=== PATIENT | male | born 1970 | race Caucasian/White ===

== ENCOUNTER 2017-01-15 04:53 | Emergency (ER) | payer OTHER ==
--- NOTE | ~2017-01-15 | CT71 ---
[facility] A Service of [facility] & [facility] RADIOLOGY TEXT RESULTS PATIENT: HAILEE CASTANEDA LOCATION: [facility] : [birth year] UNIT #: [id number] AGE: [address]: Ethan Ace MD SEX: M ORDER DR: [id number] [facility] [address] [place], [place] [address] [id number] MR#: [id number] Acc #: [id number] NAME: HAILEE CASTANEDA : 1970 SEX: M STUDY DATE/TIME: 01/15/2017 6:13 UNIT: [facility] ROOM: STUDY DESCRIPTION: CT Head Wo Contrast Attending Physician: Ethan Ace M.D. Ordering Physician: Meli Howard M.D. Primary Care Physician: Primary Care Physician No MEDICAL IMAGING REPORT This report is preliminary unless electronic signature is present EXAM CT head without contrast, 01/15/2017 HISTORY 46-year-old male with headache after hitting right forehead on table today. COMPARISON CT brain, 04/24/2009 TECHNIQUE Routine unenhanced axial images performed through the brain. This CT exam was performed with one or more of the following radiation dose reduction techniques: automatic exposure control, adjustment of mA and/or kV according to patient size, and iterative reconstruction. FINDINGS No hemorrhage, acute infarction, or abnormal extraaxial fluid collection. There is again noted fullness in the region of the pineal gland and posterior septum pellucidum with punctate calcifications. This is similar in appearance to the prior study from 2008 and measures up to 1.4 cm in size. Further characterization with contrast enhanced brain MRI is again recommended if this is not already been performed since the prior study. No midline shift or focal mass effect. Ventricular system is normal in size and configuration. Mild right frontal scalp soft tissue swelling. No acute bony abnormality. Visualized paranasal sinuses and mastoid air cells are clear. IMPRESSION 1. No acute intracranial abnormality. 2. Again noted is fullness and punctate calcification in the region of the pineal gland/posterior septum pellucidum. This is similar in appearance to the prior CT brain from 2008 and measures up to 1.4 cm [facility] A Service of [facility] & [facility] RADIOLOGY TEXT RESULTS PATIENT: HAILEE CASTANEDA LOCATION: [facility] : 69 UNIT #: [id number] AGE: [address]: Ethan Ace MD SEX: M ORDER DR: in size. Further characterization with a non-emergent contrast-enhanced brain MRI is again recommended if this has not been performed since the prior study. 3. Mild right frontal scalp soft tissue swelling. No acute bony abnormality. Dictated by... Enrique Sanders M.D. THIS IS AN ELECTRONICALLY VERIFIED REPORT Enrique Sanders M.D. at 01/15/2017 3:24 PM PIERCE/jatin TD: 01/15/2017 08:19 JOB #: [id number] MEDICAL IMAGING REPORT Page 1 of 1 COPY
--- NOTE | ~2017-01-15 | MR17 ---
[facility] A Service of [facility] & [facility] RADIOLOGY TEXT RESULTS PATIENT: HAILEE CASTANEDA LOCATION: [facility] : 68 UNIT #: [id number] AGE: [address]: Ethan Ace MD SEX: M ORDER DR: [id number] [facility] [address] [place], [place] [address] [id number] E MR#: [id number] Acc #: [id number] NAME: HAILEE CASTANEDA : 1970 SEX: M STUDY DATE/TIME: 01/15/2017 9:25 UNIT: [facility] ROOM: STUDY DESCRIPTION: MR Brain WWo Contrast Attending Physician: Ethan Ace M.D. Ordering Physician: Ethan Ace M.D. Primary Care Physician: No Primary Care Physician MRI CENTER REPORT This report is preliminary unless electronic signature is present. EXAM MRI of the brain with and without HISTORY Headache. Patient hit right forehead on a table before 6:00 a.m. today. Patient has a history of dizziness and low blood sugar with syncopal episode for 30 minutes at home today. The patient also indicates previous syncopal episodes in the past 10 years. No cancer history. COMMENT MRI of the brain was performed prior to and following intravenous administration of 20 mL of MultiHance on a 1.5T system. COMPARISON Head CT comparison is from earlier today. 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 It appears to be simple on the MRI. It does not result in significant mass effect. No further imaging evaluation is needed of this finding. No Chiari-1 malformation. There is no evidence for a recent ischemic insult on the diffusion series. There is no extra-axial fluid collection. The patient has a small hematoma right frontal scalp area consistent with recent trauma history. There is nothing to suggest intracranial hemorrhage on the MRI. No intracranial mass effect or extraaxial fluid collection. The major intracranial flow voids are maintained. There is a chronic lacune in the left cerebellar hemisphere peripherally. Please correlate for risk factors for small vessel disease. Alternatively, this could be due to tiny peripheral thromboembolus. The major intracranial flow voids are maintained. Mucous retention cyst or polyp in the left maxillary sinus and some mild volume loss and mucosal disease right maxillary sinus but no sinus air-fluid level. The mastoid air cells are clear. The carmichael-white junction is relatively well-maintained. Postcontrast imaging shows no STS. [facility] A Service of [facility] RADIOLOGY TEXT RESULTS PATIENT: HAILEE CASTANEDA LOCATION: [facility] : 68 UNIT #: [id number] AGE: [address]: Ethan Ace MD SEX: M ORDER DR: additional possible intracranial mass lesion. No pathologic intracranial enhancement. No evidence for vestibular Schwannoma. IMPRESSION 1. 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 This is an incidental finding and no further imaging evaluation of this finding is indicated. 2. No evidence for a recent ischemic insult on the diffusion series. No extraaxial fluid collection or MRI evidence for intracranial hemorrhage. 3. There is a small chronic insult at the periphery of the left cerebellar hemisphere. This small lacunar insult could be due to prior small vessel insult or possibly a tiny thromboembolus and please evaluate further clinically. 4. Mild paranasal sinus disease but no sinus air-fluid level. 5. There is soft tissue hematoma right forehead area consistent with provided history. Dictated by... Lizzette Hernandez M.D. THIS IS AN ELECTRONICALLY VERIFIED REPORT Lizzette Hernandez M.D. at 01/15/2017 2:31 PM AMOL/laura TD: 01/15/2017 13:00 JOB #: [id number] MRI CENTER REPORT Page 1 of 1 COPY
[~2017-01-15 04:53] MED LIST: HUMULIN 70100 UNITS/; HYDROCODON-ACE1 EAC9; INSULIN 70/30; LORTAB 10-5001 EACH PO; LORTAB 5/500 TA1 TA1 PO; NOVOLIN 70/30 V10 ML INJ; NOVOLIN 70100 UNITS/ SUBQ; PHENERGAN25 M1 PO; TAMIFLU75 M1 PO; TESSALON200 MG PO
[2017-01-15 05:31] LABS: BASOPHIL% 0.5 % (0-2.5); EOSINOPHIL% 0.6 % (0.0-7.0); HEMATOCRIT 44.6 % (38.0-50.0); HEMOGLOBIN 14.6 gm/dL (13.0-16.0); MEAN CELL VOLUME 92.5 FL (83-96); MEAN CORPUSCULAR HEMOGLOBIN 30.2 PG (28-34); MEAN CORPUSCULAR HGB CONC 32.7 g/dL (30-36); MEAN PLATELET VOLUME 7.8 FL (6.5-11.5); MONOCYTE# 0.3 X10e3 (0-1.0); MONOCYTE% 4.3 % (3.0-12.0); NEUTROPHIL# 6.6 X10e3 (1.5-7.1); NEUTROPHIL% 81.6 % (40-75); PLATELET COUNT 282 X10e3 (140-420); RED BLOOD COUNT 4.82 X10e (3.90-5.60); RED CELL DISTRIBUTION WIDTH 13.7 % (11.0-15.5)
[2017-01-15 05:46] LABS: DIFF IND NO
[2017-01-15 06:11] LABS: ALBUMIN SERUM 4.2 g/dL (3.5-5.0); BILIRUBIN, DIRECT 0.1 mg/dL (0.0-0.2); BILIRUBIN,INDIRECT 0.9 mg/dL (0.0-0.9); BUN/CREATININE RATIO 13.33; CALCIUM SERUM 8.8 mg/dL (8.4-10.2); CREATININE SERUM 0.9 mg/dL (0.6-1.4); GLOM FILT RATE Estimated 101.4 mL/min (>60)
[2017-01-15 06:13] LABS: URINE SOURCE CLEAN CATCH
[2017-01-15 06:16] LABS: POTASSIUM 2.6 mmol/L (3.5-5.1)
[2017-01-15 06:21] LABS: URINE APPEARANCE CLEAR; URINE BILIRUBIN NEG (NEG); URINE BLOOD NEG (NEG); URINE COLOR YELLOW; URINE GLUCOSE >1000 MG/DL (NEG); URINE KETONE NEG (NEG); URINE LEUKOCYTE ESTERASE NEG (NEG); URINE NITRATE NEG (NEG); URINE PROTEIN NEG (NEG); URINE SPECIFIC GRAVITY 1.023 (1.003-1.035)
[2017-01-15 06:28] LABS: CULTURE INDICATED? NO
[2017-01-15 06:32] LABS: AMPHETAMINE POS (NEG); BARBITURATES NEG (NEG); BENZODIAZEPINES NEG (NEG); COCAINE NEG (NEG); MARIJUANA NEG (NEG); OPIATES NEG (NEG); TRICYCLIC ANTIDEPRESSANTS NEG (NEG); U METHADONE NEG (NEG)
== END 2017-01-15 13:16 | disposition home or self-care (01) ==
LOC: CED 04:53
PROVIDERS: Emergency Medicine
DX: E87.5 Hyperkalemia (principal); F15.10 Other stimulant abuse, uncomplicated; E10.9 Type 1 diabetes mellitus without complications; F17.210 Nicotine dependence, cigarettes, uncomplicated; Z79.4 Long term (current) use of insulin
CPT/HCPCS: 70450; 70553; 80048; 80076; 80307; 81003; 82947; 85025; 96365; 96366; 99284; A9577

== ENCOUNTER 2017-01-26 22:44 | Emergency (ER) | payer OTHER ==
[2017-01-27 00:18] LABS: BASOPHIL# 0.1 X10e3 (0-0.3); BASOPHIL% 0.7 % (0-2.5); DIFF IND NO; EOSINOPHIL# 0.1 X10e3 (0-0.7); EOSINOPHIL% 1.1 % (0.0-7.0); HEMATOCRIT 44.3 % (38.0-50.0); HEMOGLOBIN 14.3 gm/dL (13.0-16.0); LYMPHOCYTE# 1.7 X10e3 (1.0-3.5); LYMPHOCYTE% 16.6 % (17.0-45.0); MEAN CELL VOLUME 92.3 FL (83-96); MEAN CORPUSCULAR HEMOGLOBIN 29.8 PG (28-34); MEAN CORPUSCULAR HGB CONC 32.2 g/dL (30-36); MEAN PLATELET VOLUME 7.8 FL (6.5-11.5); MONOCYTE# 0.7 X10e3 (0-1.0); MONOCYTE% 7.4 % (3.0-12.0); NEUTROPHIL# 7.4 X10e3 (1.5-7.1); NEUTROPHIL% 74.2 % (40-75); PLATELET COUNT 350 X10e3 (140-420)
[2017-01-27 00:39] LABS: ALBUMIN SERUM 4.6 g/dL (3.5-5.0); ALKALINE PHOSPHATASE 55 U/L (32-92); ALT (SGPT) 24 U/L (10-40); AST (SGOT) 28 U/L (10-42); BILIRUBIN, DIRECT 0.1 mg/dL (0.0-0.2); BILIRUBIN,INDIRECT 0.7 mg/dL (0.0-0.9); BILIRUBIN,TOTAL 0.8 mg/dL (0.2-2.0); BLOOD UREA NITROGEN 22 mg/dL (9-23); BUN/CREATININE RATIO 24.44; CALCIUM SERUM 9.7 mg/dL (8.4-10.2); CARBON DIOXIDE 25 mmol/L (22-31); CHLORIDE 99 mmol/L (100-111); CREATININE SERUM 0.9 mg/dL (0.6-1.4); GLOM FILT RATE Estimated 101.4 mL/min (>60); GLUCOSE FASTING 183 mg/dL (70-110); POTASSIUM 3.8 mmol/L (3.5-5.1); PROTEIN TOTAL SERUM 7.6 g/dL (6.0-8.3); SALICYLATE <4.0 mg/dL; SODIUM 133 mmol/L (135-145)
[2017-01-27 00:51] LABS: ACETAMINOPHEN <10 ug/mL; ALCOHOL BLOOD <5 mg/dL (0)
[2017-01-27 01:40] LABS: URINE SOURCE CLEAN CATCH
[2017-01-27 01:45] LABS: URINE APPEARANCE CLEAR; URINE BILIRUBIN NEG (NEG); URINE BLOOD NEG (NEG); URINE COLOR YELLOW; URINE GLUCOSE >1000 MG/DL (NEG); URINE KETONE TRACE (NEG); URINE LEUKOCYTE ESTERASE NEG (NEG); URINE NITRATE NEG (NEG); URINE PROTEIN 1+ (NEG); URINE SPECIFIC GRAVITY 1.029 (1.003-1.035)
[2017-01-27 01:48] LABS: CULTURE INDICATED? NO; URBCS1 AUWI 0-2 /[HPF] (0-2); URINE BACTERIA AUWI NEG (NEGATIVE); URINE SQUAMOUS EPITHELIAL CELL NONE SEEN /[HPF]; UWBCS1 AUWI 0-2 (0-5)
[2017-01-27 02:05] LABS: AMPHETAMINE POS (NEG); BARBITURATES NEG (NEG); BENZODIAZEPINES NEG (NEG); COCAINE POS (NEG); MARIJUANA NEG (NEG); OPIATES POS (NEG); TRICYCLIC ANTIDEPRESSANTS NEG (NEG); U METHADONE NEG (NEG)
== END 2017-01-27 11:00 | disposition other institution (70) ==
LOC: CED 22:44
PROVIDERS: Emergency Medicine
DX: T38.3X2A Poisoning by insulin and oral hypoglycemic [antidiabetic] drugs, intentional self-harm, initial encounter (principal); F32.9 Major depressive disorder, single episode, unspecified; E11.9 Type 2 diabetes mellitus without complications; Z79.899 Other long term (current) drug therapy
CPT/HCPCS: 36415; 80048; 80076; 80307; 81003; 82947; 85025; 96360; 99285; G0480

== ENCOUNTER 2017-01-27 01:00 | Inpatient (IN) | payer OTHER ==
--- NOTE | ~2017-01-27 | PN ---
Unit #: [id number] #: [id number] Patient: HAILEE CASTANEDA [id number] [facility] [address] [place] [address] [id number] I MR#: [id number] NAME: HAILEE CASTANEDA [facility] Age: 46 Sex: M Admission Date: 01/27/2017 : 1970 Attending Physician: Rakan Busch M.D. Admitting Physician: Rakan Busch M.D. Primary Care Physician: Primary Care Physician Alia COOPER NOTES DATE OF SERVICE: 02/02/2017 SUBJECTIVE This patient was seen and assessed on 02/02/2017. Upon today's assessment, the patient reports that he had a low blood sugar this morning and relates that to not eating the snack last night and is asking for diabetic snack to eat at night. Upon speaking with staff, I am told that he receives those anyhow. The patient was informed that he can have peanut butter and Ky crackers in the evening before he goes to bed. The patient reports that overall he is doing well and the plan is to discharge Friday and follow up with [facility]. Dictated by... Kerry Estrada/modl TD: 02/03/2017 23:09 JOB #: [id number] MAUREEN COOPER NOTES Page 1 of 1 X Ana Brantley PROGRESS NOTE
--- NOTE | ~2017-01-27 | PN ---
Unit #: [id number] #: [id number] Patient: HAILEE CASTANEDA [id number] [facility] [address] [place] [address] [id number] I MR#: [id number] NAME: HAILEE CASTANEDA ROOM: 15 Age: 46 Sex: M Admission Date: 01/27/2017 : 1970 Attending Physician: Rakan Busch M.D. Admitting Physician: Rakan Busch M.D. Primary Care Physician: Primary Care Physician No MAUREEN PROGRESS NOTES DATE OF SERVICE 01/31/2017 DISCUSSION Eric is a little bit better and his mood today with a brighter affect. He complains of a mild nonproductive cough. He is alert and fully oriented with no evidence of psychosis and he denies suicidal ideation, intent or plan. ASSESSMENT Bipolar disorder. PLAN Provide Robitussin and continue current treatment plan. Dictated by... Ryan Suarez/elisha TD: 02/09/2017 13:21 JOB #: [id number] [facility] PROGRESS NOTES Page 1 of 1 X Rakan Busch MD X PROGRESS NOTE
--- NOTE | ~2017-01-27 | PA ---
Unit #: [id number] #: [id number] Patient: HAILEE PIERRE [id number] [facility] [address] [place] [address] [id number] I MR#: [id number] NAME: HAILEE PIERRE ROOM: [facility] Age: 46 Sex: M Admission Date: 01/27/2017 : 1970 Date of Assessment: Attending Physician: Rakan Busch M.D. Admitting Physician: Rakan Busch M.D. PSYCHIATRIC ASSESSMENT DATE OF SERVICE 01/28/2017. INFORMANTS Patient, reliable; Sts. Alison and Tricia, reliable; BRITTANEY, reliable. CHIEF COMPLAINT Increasing mood problems and overdose. HISTORY OF PRESENT ILLNESS Hailee Pierre is a 46-year-old man with a history of bipolar disorder and diabetes who took an intentional overdose of 70 units of insulin. He recently lost his job, is from his , and is having increasing stress, dysphoria, hopelessness and felt suicidal with a plan to overdose. He was unable to contract for safety and after he was medically cleared, [facility] PAST PSYCHIATRIC HISTORY Last admission in this facility was in 2013. He has had erratic compliance since that time and does have a history of suicide attempts by overdose and previous hospitalization at the [facility]. FAMILY PSYCHIATRIC HISTORY The patient's father was an alcoholic. SOCIAL HISTORY The patient denied any history of abuse or neglect growing up. He is a high-school graduate, who is with 2 children. PAST MEDICAL HISTORY Type 1 diabetes. MEDICATIONS Please see MAR. ALLERGIES No known medication allergies. SUBSTANCE ABUSE HISTORY The patient smokes, but does not use drugs or alcohol. MENTAL STATUS EXAMINATION The patient presented as a mildly disheveled man, who appeared his stated Unit #: [id number] #: [id number] Patient: HAILEE PIERRE age. He was irritable and somewhat uncooperative with the examination, demanding that the interviewer is "stepped back far enough" to avoid crowding him. His mood was irritable and angry with a congruent affect. He was alert and fully oriented. His memory and concentration were fair. Thought processes appears somewhat racing with mild dysphoria, mild disorganization, and mild circumstantiality. He reported suicidal ideation and could not contract for safety. Insight and judgment, fair. Fund of knowledge and abstraction, fair. ASSETS AND LIABILITIES The patient is youthful and voluntary for treatment. Liabilities include lack of current treatment plan and recent occupational problems. ADMITTING DIAGNOSES AXIS I: Bipolar, mixed. AXIS II: No diagnosis. AXIS III: Diabetes mellitus, insulin-dependent. AXIS IV: AXIS V: PSYCHIATRIC PLAN The patient was admitted and placed on suicide precautions. We will restart insulin as per our medical consultants and obtain baseline laboratory studies. We will restart Depakote 500 mg b.i.d. and titrate upwards to effect. He will enroll in psychotherapy groups, and activities. TREATMENT GOALS Resolution of SI, improvement in insight, and improvement in coping skills. DISCHARGE PLAN Follow up with [facility]. ESTIMATED LENGTH OF STAY 5 days. Dictated by... Rakan Busch M.D. SHAMIR/tiffany TD: 01/29/2017 01:18 JOB #: [id number] PSYCHIATRIC ASSESSMENT Page 1 of 1 X Rakan Busch MD X PSYCHIATRIC ASSESSMENT
--- NOTE | ~2017-01-27 | CO ---
Unit #: [id number] #: [id number] Patient: HAILEE CASTANEDA [id number] [facility] [address] [place] [address] [id number] I MR#: [id number] NAME: HAILEE CASTANEDA ROOM: [facility] Age: 46 Sex: M Admission Date: 01/27/2017 : 1970 Attending Physician: Rakan Busch M.D. Primary Care Physician: Primary Care Physician No CONSULTATION REPORT SUBJECTIVE Yesterday, the patient was seen by Celine Collins, nurse practitioner and restarted on his home medication of Novolin 70/30, but instead of 40 units b.i.d. as he was taking at home, she started him on 30 units b.i.d. Today, his blood sugars were reviewed and at breakfast noted to be 52 and at lunch noted to be 246. The patient is requesting to go back up on his 70/30; however, due to his low blood sugar this morning, I think it is more appropriate to continue NovoLog sliding scale with meals. Dictated by... Kerry Fernandez/tiffany TD: 02/02/2017 17:15 JOB #: [id number] CONSULTATION REPORT Page 1 of 1 X BHARGAVI OCASIO APRN CONSULTATION REPORT
--- NOTE | ~2017-01-27 | CO ---
Unit #: [id number] #: [id number] Patient: MIGUEL CASTANEDA [id number] [place] [address] [id number] I MR#: [id number] NAME: MIGUEL CASTANEDA ROOM: [facility] Age: 46 Sex: M Admission Date: 01/27/2017 : 1970 Attending Physician: Rakan Busch M.D. Primary Care Physician: Primary Care Physician No Consultation Date: 02/01/2017 CONSULTATION REPORT HISTORY OF PRESENT ILLNESS Miguel reports that he is type 2 diabetic; however, he reports being insulin dependent. He was diagnosed 17 years ago and reports taking Novolin 70/30, 40 units in the morning and 40 units at night. He reports that he gets this for free [id number] from [employer]. He does see Dr. Ann at [facility] who manages his diabetes. His last A1c was 7.9. He checks his blood sugars frequently at home and typically there his highest levels are 180. Since being admitted, his blood sugars are frequently greater than 400. He is receiving Levemir and sliding-scale NovoLog. We have increased his Levemir to 18 units; however, he still continues to have elevated blood sugars. He has no other complaints. PHYSICAL EXAMINATION CARDIAC: Regular rate and rhythm. No murmurs, gallops, or rubs. RESPIRATORY: Clear to auscultation bilaterally. ASSESSMENT AND PLAN Type 2 diabetes, insulin dependent. We will discontinue previous insulin orders and begin Novolin 70/30, 30 units q.a.m. and q.h.s. I have discussed with the patient need for decreasing the total amount of insulin that he is given and we will increase as needed to keep blood sugars less than 200 while admitted. The patient was instructed to follow up with primary care provider. Dictated by... Celine Laureano A.P.R.N. for Ryan Gallegos/tiffany TD: 02/01/2017 23:23 JOB #: [id number] Unit #: [id number] #: [id number] Patient: MIGUEL CASTANEDA CONSULTATION REPORT Page 1 of 1 X CELINE MAGAÑA APRN CONSULTATION REPORT
--- NOTE | ~2017-01-27 | PN ---
Unit #: [id number] #: [id number] Patient: HAILEE CASTANEDA [id number] [facility] [address] [place] [address] [id number] I MR#: [id number] NAME: HAILEE CASTANEDA ROOM: [facility] Age: 46 Sex: M Admission Date: 01/27/2017 : 1970 Attending Physician: Rakan Busch M.D. Admitting Physician: Rakan Busch M.D. Primary Care Physician: Primary Care Physician No [facility] PROGRESS NOTES DATE February 01, [address] [facility] DISCUSSION Upon today's assessment, the patient was found sitting in his room, appearing in no apparent discomfort. He reports, at this time, "I'm okay." He denies suicidal or homicidal ideation, denies auditory or visual hallucinations, and no overt symptoms with psychosis noted at this time. He has complaint of his blood sugar and the type of insulin that he received at this facility and says that it is not the type that he has at home, and states that it doesn't regulate his blood sugar as well either. At this time the plan is to continue the detox protocol and current medications. Dictated by... GIL Powers TD: 02/04/2017 10:25 JOB #: [id number] [facility] PROGRESS NOTES Page 1 of 1 X EL SAGE PROGRESS NOTE
--- NOTE | ~2017-01-27 | PN ---
Unit #: [id number] #: [id number] Patient: HAILEE CASTANEDA [id number] [facility] [address] [place] [address] [id number] I MR#: [id number] NAME: HAILEE CASTANEDA ROOM: 15 Age: 46 Sex: M Admission Date: 01/27/2017 : 1970 Attending Physician: Rakan Busch M.D. Admitting Physician: Rakan Busch M.D. Primary Care Physician: Primary Care Physician Alia REDDY PROGRESS NOTES DATE 01/29/2017 DISCUSSION Hailee reports that he is refusing to accept Depakote because "it messes with your liver" and continues to insist that he is on Percocet in the outpatient setting, although he has not been able to provide a pharmacy to confirm this. Our limitations were explained but I did offer the patient alternative treatment in the form of another mood stabilizer and he did accept the idea of treatment with lamotrigine. Mood is irritable with a congruent affect. He is alert and fully oriented with no active psychosis. ASSESSMENT Bipolar, mixed. PLAN Will discontinue Depakote and start lamotrigine 25 mg at bedtime to titrate upwards as appropriate. I will provide Percocet 5/325 every 6 hours p.r.n. in order to treat the patient's shoulder pain. Dictated by... Ryan Suarez/lalit TD: 01/30/2017 17:46 JOB #: [id number] [facility] PROGRESS NOTES Page 1 of 1 X Rakan Busch MD X PROGRESS NOTE
--- NOTE | ~2017-01-27 | HP ---
Unit #: [id number] #: [id number] Patient: HAILEE CASTANEDA [id number] [facility] [address] [place] [address] [id number] MR#: [id number] NAME: HAILEE CASTANEDA ROOM: [facility] Age: 46 Sex: M Admission Date: 01/27/2017 : 1970 Attending Physician: Rakan Busch M.D. Admitting Physician: Rakan Busch M.D. Primary Care Physician: Primary Care Physician No HISTORY AND PHYSICAL HISTORY OF PRESENT ILLNESS Hailee is a 46 year old, admitted to [address] [place] [address] with depression after an intentional overdose of insulin. He was treated in local emergency room and when medically stable transferred to [facility] for [facility]. PAST MEDICAL HISTORY Diabetes mellitus, insulin dependent. PAST SURGICAL HISTORY Nothing reported. ALLERGIES No known drug allergies. SOCIAL HISTORY He smokes less than one half pack per day, denies alcohol, admits to a history of illicit substance abuse to include recent abuse of amphetamines. FAMILY HISTORY Medically noncontributory. REVIEW OF SYSTEMS CONSTITUTIONAL: No fever or chills. HEENT: Denies any sore throat, ear pain or runny nose. CARDIOVASCULAR: Denies chest pain, irregular heart rhythm or palpitations. CHEST: Denies shortness of breath or cough. No hemoptysis. GASTROINTESTINAL: Denies nausea, vomiting, diarrhea or chronic constipation. ENDOCRINE: Denies history of increased thirst or urination. No recent significant weight loss or gain. GENITOURINARY: Denies dysuria, frequency, or hematuria. SKIN: Denies any rashes. HEMATOLOGIC: Denies history of increased bleeding or bruising. MUSCULOSKELETAL: Denies any hot, swollen joints. No generalized muscle pain. NEUROLOGIC: Denies problems with vision or speech. No frequent, severe headaches. No numbness, tingling or weakness in any extremities. Denies loss of bladder or bowel control. CURRENT MEDICATIONS 1. Levemir 12 units q.h.s. 2. Desyrel 50 mg q.h.s. Unit #: [id number] #: [id number] Patient: HAILEE CASTANEDA 3. NovoLog per sliding scale 4. Milk of magnesia p.r.n. 5. Maalox p.r.n. 6. Tylenol p.r.n. 7. Nicotine patch 7 mg daily PHYSICAL EXAMINATION GENERAL: Alert, well-nourished, no apparent distress. VITAL SIGNS: Blood pressure 140/80, heart rate 80, respirations 16, and temperature 98.6. WEIGHT: 180 pounds. HEIGHT: 6 feet 1 inch. SKIN: Warm and dry without rash or lesion. HEENT: Normocephalic. TMs not viewed. Oral and nasal passages clear. Conjunctivae clear. PERRLA. EOMs intact. NECK: Supple without lymphadenopathy or thyromegaly. HEART: Regular rate and rhythm without murmur. LUNGS: Clear. ABDOMEN: Soft, nontender. : Not done. EXTREMITIES: No evidence of cyanosis, clubbing or edema. Moves all without focal deficit. NEUROLOGICAL: Grossly within normal limits. Cranial Nerves: II: Visual glass are intact. III, IV AND : Extraocular movements are intact. Pupils are equal, round and reactive to light. V: Facial sensation is grossly normal. VII: Facial movements and expression are normal. VIII: Auditory acuity grossly intact. IX, X: Uvula is midline. Phonation is normal. XI: Patient shrugs shoulders and turns head normally. XII: Tongue protrudes in the midline. Sensory and Motor Function: Sensory and motor sensation is grossly normal. Motor: moves all extremities well. Coordination: Gait is normal. Deep Tendon Reflexes: Intact. IMPRESSION Psychiatric admission. RECOMMENDATIONS Psychiatric, per psychiatrist. MEDICAL I see no contraindications to participating in facility's activities. MEDICAL PROGNOSIS Good. MEDICAL CONDITION Stable. Dictated by... Leigh Ann Casillas P.A.-C. for Ryan Gallegos/kaitlin TD: 01/29/2017 04:56 Unit #: [id number] #: [id number] Patient: HAILEE CASTANEDA JOB #: [id number] HISTORY AND PHYSICAL Page 1 of 1 X Leigh Ann Casillas HISTORY AND PHYSICAL
--- NOTE | ~2017-01-27 | PN ---
Unit #: [id number] #: [id number] Patient: HAILEE CASTANEDA [id number] [facility] [address] [place] [address] [id number] I MR#: [id number] NAME: HAILEE CASTANEDA ROOM: [facility] Age: 46 Sex: M Admission Date: 01/27/2017 : 1970 Attending Physician: Rakan Busch M.D. Admitting Physician: Rakan Busch M.D. Primary Care Physician: Primary Care Physician lAia REDDY PROGRESS NOTES DATE 01/30/2017 DISCUSSION Hailee slept a little bit better last night although he complained of some restless legs at bedtime. Mood remains labile and a little irritable with a congruent affect. He is alert and fully oriented. His memory and concentration were fair. His thought processes were goal-directed with no psychosis. He continues to report SI. ASSESSMENT Bipolar depressed. PLAN Due to the need for rapid stabilization, I am going to increase his Lamictal again this evening to 50 mg at bedtime. The patient was provided with informed consent regarding the risks and benefits of this intervention including the risk of development of a rash, and he is understanding and agrees to monitor for this side effect. He will continue on his current medications and precautions, otherwise. Dictated by... Ryan SuarezH/kaitlin TD: 01/31/2017 06:51 JOB #: [id number] Unit #: [id number] #: [id number] Patient: HAILEE CASTANEDA PROGRESS NOTES Page 1 of 1 X Rakan Busch MD X PROGRESS NOTE
[2017-01-28 09:49] LABS: BASOPHIL# 0.1 X10e3 (0-0.3); BASOPHIL% 0.9 % (0-2.5); EOSINOPHIL# 0.2 X10e3 (0-0.7); EOSINOPHIL% 2.5 % (0.0-7.0); HEMATOCRIT 41.7 % (38.0-50.0); HEMOGLOBIN 13.7 gm/dL (13.0-16.0); LYMPHOCYTE# 1.6 X10e3 (1.0-3.5); LYMPHOCYTE% 17.2 % (17.0-45.0); MEAN CELL VOLUME 91.9 FL (83-96); MEAN CORPUSCULAR HEMOGLOBIN 30.2 PG (28-34); MEAN CORPUSCULAR HGB CONC 32.9 g/dL (30-36); MEAN PLATELET VOLUME 7.9 FL (6.5-11.5); MONOCYTE# 0.5 X10e3 (0-1.0); MONOCYTE% 5.9 % (3.0-12.0); NEUTROPHIL# 6.7 X10e3 (1.5-7.1); NEUTROPHIL% 73.5 % (40-75); PLATELET COUNT 297 X10e3 (140-420); RED BLOOD COUNT 4.54 X10e (3.90-5.60); RED CELL DISTRIBUTION WIDTH 13.9 % (11.0-15.5); WHITE BLOOD COUNT 9.2 X10e3 (4.0-10.5)
[2017-01-28 09:53] LABS: DIFF IND NO
[2017-01-28 10:05] LABS: THYROID STIMULATING HORMONE 0.79 uIU/ml (0.34-5.60)
[2017-01-28 10:12] LABS: FREE THYROXIN (T4) 0.62 ng/dL (0.58-1.64)
[2017-01-28 10:24] LABS: ALBUMIN SERUM 3.6 g/dL (3.5-5.0); BILIRUBIN,TOTAL 1.2 mg/dL (0.2-2.0); BUN/CREATININE RATIO 26.25; CALCIUM SERUM 9.4 mg/dL (8.4-10.2); CREATININE SERUM 0.8 mg/dL (0.6-1.4); GLOM FILT RATE Estimated 106.4 mL/min (>60); POTASSIUM 4.6 mmol/L (3.5-5.1); PROTEIN TOTAL SERUM 6.1 g/dL (6.0-8.3)
== END 2017-02-02 19:30 | disposition home or self-care (01) | DRG 885 ==
LOC: P1S 11:58
PROVIDERS: Psychiatry & Neurology Psychiatry
DX: F31.60 Bipolar disorder, current episode mixed, unspecified (principal); E10.9 Type 1 diabetes mellitus without complications; F17.210 Nicotine dependence, cigarettes, uncomplicated; Z91.5 Personal history of self-harm; Z81.1 Family history of alcohol abuse and dependence; Z79.4 Long term (current) use of insulin
CPT/HCPCS: 80053; 82947; 83036; 84439; 84443; 85025